=== PATIENT | female | born 1945 | race Caucasian/White ===

== ENCOUNTER 2017-07-27 10:32 | Emergency (ER) | payer OTHER ==
[~2017-07-27] VITALS: Ht 167.6 cm; Wt 74.8 kg
[~2017-07-27 10:32] MED LIST: ANTIVERT25 MG PO; ASPIR 8181 MG PO; ASPIRIN325 PO; BENAZEPRIL HCL40 MG PO; CEFTIN500 MG PO; CYCLOBENZAPRINE5 MG PO; FLEXERIL PO; IBUPROFEN 600600 M1 PO; LEVOTHYROXIN0.112 M1 PO; LEVOTHYROXIN0.125 M1 PO; LOTENSIN40 MG PO; MOBIC15 MG PO; NORCO 5-325 TA1 EACH PO; NORVASC5 MG PO
[2017-07-27] MEDS ORDERED: IBUPROFEN 600600 M1 PO (12:28)
== END 2017-07-27 13:15 | disposition home or self-care (01) ==
LOC: ER 10:32
DX: M25.532 Pain in left wrist (principal); I10 Essential (primary) hypertension; E03.9 Hypothyroidism, unspecified; E78.5 Hyperlipidemia, unspecified; G89.29 Other chronic pain; F10.99 Alcohol use, unspecified with unspecified alcohol-induced disorder; W18.39XA Other fall on same level, initial encounter; Y93.89 Activity, other specified; Y92.89 Other specified places as the place of occurrence of the external cause; Y99.8 Other external cause status